=== PATIENT | female | born 1995 | race Caucasian/White ===

== ENCOUNTER 2022-12-14 17:03 | Emergency (ER) | payer MEDICAID, SELFPAY ==
[2022-12-14 17:04] VITALS: BP 142/88; PULSE 89; RESP 18; TEMP 36.8; O2SAT 97; BMI 28.1
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
[2022-12-14] MEDS: iohexol 350 mg/mL 500 mL Btl (per mL) IV (18:08)
[2022-12-14] MEDS: LORazepam 2 mg/mL INJ 1 mL 0.5 MG IVP (18:14)
[2022-12-14] MEDS: ondansetron 2 mg/ML SDV 2 mL 4 MG IVP (18:17)
[2022-12-14 18:19] VITALS: RESP 16; O2SAT 98
[2022-12-14] MEDS: morphine 4 mg/mL SDV 1 mL IVP (18:19)
--- NOTE | 2022-12-14 18:26 | PC.NURSE ---
The physician ordered morphine and zofran twice for the patient without realizing. I only gave one dose of Zofran and morphine.
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
== END 2022-12-14 19:46 | disposition home or self-care (01) ==
PROVIDERS: Emergency Provider Emergency Medicine; PCP Nurse Practitioner
DX: S13.4XXA Sprain of ligaments of cervical spine, initial encounter (principal); S20.219A Contusion of unspecified front wall of thorax, initial encounter; V89.2XXA Person injured in unspecified motor-vehicle accident, traffic, initial encounter
CPT/HCPCS: 70450; 71260; 72125; 74177; 96374; 96375; 99285; J2060; J2270; J2405; Q9967

== ENCOUNTER → 2023-03-02 15:00 | Outpatient (BNVA) | payer MEDICAID, SELFPAY | PROVIDERS: PCP Nurse Practitioner; Visit Provider Nurse Practitioner | DX: J06.9 Acute upper respiratory infection, unspecified (principal) | CPT/HCPCS: 87426; 87880 ==

== ENCOUNTER → 2023-05-19 08:22 | Outpatient (BNVA) | payer MEDICAID, SELFPAY | PROVIDERS: PCP Nurse Practitioner; Visit Provider Nurse Practitioner Women's Health | DX: Z30.9 Encounter for contraceptive management, unspecified (principal); Z12.4 Encounter for screening for malignant neoplasm of cervix; Z11.3 Encounter for screening for infections with a predominantly sexual mode of transmission; R10.2 Pelvic and perineal pain | CPT/HCPCS: 81025; 85025; 86592; 86803; 87340; 87806; 88175 ==

== ENCOUNTER → 2024-02-29 11:44 | Outpatient (BNVA) | payer SELFPAY | PROVIDERS: PCP Nurse Practitioner | DX: J02.9 Acute pharyngitis, unspecified (principal) | CPT/HCPCS: 87880 ==

== ENCOUNTER → 2024-05-13 16:30 | Outpatient (BNVA) | payer SELFPAY | PROVIDERS: PCP Nurse Practitioner; Visit Provider Nurse Practitioner | DX: R42 Dizziness and giddiness (principal) | CPT/HCPCS: 80053; 85025 ==